=== PATIENT | female | born 1955 | race Caucasian/White ===

== ENCOUNTER 2017-08-25 06:32 | Emergency (ER) | payer OTHER ==
[~2017-08-25] VITALS: Ht 149.9 cm; Wt 56.7 kg
[2017-08-25] MEDS ORDERED: LIPITOR10 MG PO (06:48)
[2017-08-25] MEDS ORDERED: METFORMIN HCL500 MG PO (06:48)
[2017-08-25] MEDS ORDERED: VALIUM5 MG PO (06:49)
[2017-08-25] MEDS ORDERED: B-12500 MCG PO (06:49)
[2017-08-25] MEDS ORDERED: OMEGA-31000 M1 PO (06:50)
[2017-08-25] MEDS ORDERED: NIACIN500 MG PO (06:50)
[2017-08-25] MEDS ORDERED: CINNAMON PLUS1 EACH PO (06:51)
[2017-08-25] MEDS ORDERED: CALCIUM + D SO1 EACH PO (06:52)
[2017-08-25] MEDS ORDERED: PRESERVISION A1 EAC2 PO (06:52)
[2017-08-25] MEDS ORDERED: ONE-A-DAY WOMENS PO (06:52)
[2017-08-25] MEDS ORDERED: MORPHINE SULFAT15 M3 PO (07:33)
[2017-08-25 08:10] VITALS: BP 159/67
== END 2017-08-25 08:12 | disposition home or self-care (01) ==
LOC: ER 06:32
DX: M25.512 Pain in left shoulder (principal); J45.909 Unspecified asthma, uncomplicated; I10 Essential (primary) hypertension; Z85.42 Personal history of malignant neoplasm of other parts of uterus

== ENCOUNTER 2018-11-03 20:16 | Emergency (ER) | payer OTHER ==
[~2018-11-03] VITALS: Ht 149.9 cm; Wt 59.0 kg
[~2018-11-03 20:16] MED LIST: B-12500 MCG PO; CALCIUM + D SO1 EACH PO; CINNAMON PLUS1 EACH PO; LIPITOR10 MG PO; METFORMIN HCL500 MG PO; MORPHINE SULFAT15 M3 PO; NIACIN500 MG PO; OMEGA-31000 M1 PO; ONE-A-DAY WOMENS PO; PRESERVISION A1 EAC2 PO; VALIUM5 MG PO
[2018-11-03 21:28] VITALS: BP 135/55
== END 2018-11-03 21:40 | disposition home or self-care (01) ==
LOC: ER 20:16
DX: K22.2 Esophageal obstruction (principal); J45.909 Unspecified asthma, uncomplicated; I10 Essential (primary) hypertension; Z85.42 Personal history of malignant neoplasm of other parts of uterus; Z88.6 Allergy status to analgesic agent; Z88.0 Allergy status to penicillin

== ENCOUNTER 2019-11-20 14:24 | Emergency (ER) | payer OTHER ==
[~2019-11-20] VITALS: Ht 149.9 cm; Wt 59.0 kg
[2019-11-20 15:39] LABS: ABSOLUTE NEUTROPHILS 9.4 thou/uL (1.4-8.2); BASOPHILS 0.4 % (0.0-2.0); EOSINOPHILS 0.7 % (0.0-3.0); HEMATOCRIT 42.3 % (37.0-47.0); HEMOGLOBIN 14.3 gm/dL (12.0-15.0); LYMPHOCYTES 16.2 % (24.0-44.0); MCH 28.7 pg (26.0-34.0); MCHC 33.8 g/dL (28.0-37.0); PLATELET COUNT 226 thou/uL (150-400); POLYS 77.7 % (36.0-66.0); RBC 4.98 mil/uL (4.20-5.00); RDW 13.4 % (10.5-14.5); WBC 12.1 thou/uL (4.0-11.0)
[2019-11-20 15:42] LABS: CALCIUM 9.9 mg/dL (8.5-10.1); CREATININE 0.6 mg/dL (0.6-1.0); POTASSIUM 3.9 mmol/L (3.5-5.1)
[2019-11-20 15:48] LABS: ALBUMIN 4.2 g/dL (3.4-5.0); TOTAL BILIRUBIN 0.5 mg/dL (0.2-1.0); TOTAL PROTEIN 7.7 g/dL (6.4-8.2)
[2019-11-20 19:36] VITALS: BP 165/60
== END 2019-11-20 19:36 | disposition home or self-care (01) ==
LOC: ER 14:24
PROVIDERS: Physician Assistant
DX: T18.128A Food in esophagus causing other injury, initial encounter (principal); J45.909 Unspecified asthma, uncomplicated; I10 Essential (primary) hypertension; Z79.899 Other long term (current) drug therapy; Z88.0 Allergy status to penicillin; Z88.5 Allergy status to narcotic agent; X58.XXXA Exposure to other specified factors, initial encounter; Y93.89 Activity, other specified; Y92.89 Other specified places as the place of occurrence of the external cause; Y99.8 Other external cause status
CPT/HCPCS: 62110; 62900